=== PATIENT | male | born 1945 | race American Indian/Alaskan Native ===

== ENCOUNTER 2020-08-13 17:46 | Inpatient (IN) | payer MEDICARE, OTHER ==
[2020-08-13] MEDS ORDERED: Sodium Chloride 0.9% 1,000 ML IV ONE (18:57)
--- NOTE | 2020-08-13 19:09 | EDM.PDOC ---
ED HPI GENERAL MEDICAL PROBLEM - General Chief Complaint: General Stated Complaint: COVID POSITIVE-NOT EATING OR DRINKING Time Seen by Provider: 08/13/20 17:50 Source of Information: Reports: Patient, Family History Limitations: Reports: No Limitations - History of Present Illness INITIAL COMMENTS - FREE TEXT/NARRATIVE: HISTORY AND PHYSICAL: History of present illness: Patient is a 75-year-old male who presents to the ED today with his daughter for concern of confusion, not eating or drinking, and weakness. Patient was diagnosed with COVID 1 week ago and daughter states initially he was doing fine but did have some coughs and fevers. Daughter states that he was doing better until 1 to 2 days ago when suddenly he was unable to walk, stand, get himself dressed, eat, or drink anything. Daughter states that prior to the COVID infection, he was fully ambulatory and completed ADLs without any assistance. Daughter states that he also is confused and is not replying appropriately to questions. Patient states when asked what he is feeling he states "tired ". Patient does not answer much more than this. When asked patient where he is at he believes he is in [facility]. Patient is aware of himself and family member at bedside but does answer other questions slowly and confused. Review of systems: As per history of present illness and below otherwise all systems reviewed and negative. Past medical history: As per history of present illness and as reviewed below otherwise noncontributory. Surgical history: As per history of present illness and as reviewed below otherwise noncontributory. Social history: See social history for further information Family history: As per history of present illness and as reviewed below otherwise noncontribu tory. Physical exam: General: Patient is in no acute distress. Patient laying comfortably on exam table, tired appearing. He is slow to respond, with 1 word answers to questions. Orientated to person, time but not placed. Appears confused. HEENT: Atraumatic, normocephalic, pupils equal and reactive bilaterally, negative for conjunctival pallor or scleral icterus, mucous membranes moist, TMs normal bilaterally, throat clear, neck supple, nontender, trachea midline. No drooling or trismus noted. No meningeal signs. No hot potato voice noted. Lungs: Patient speaking without breathlessness but does only reply in short 1 word responses and confused, no wheezing or stridor, no accessory muscle use or respiratory distress. Auscultation deferred due to current COV-ID 19 outbreak. Heart: Auscultation deferred due to current COV-ID 19 outbreak. Abdomen: Soft, nondistended, nontender. Negative for masses or hepatosplenomegaly. Negative for costovertebral tenderness. Pelvis: Stable nontender. Genitourinary: Deferred. Rectal: Deferred. Skin: Intact, warm, dry. No lesions or rashes noted. Extremities: Atraumatic, negative for cords or calf pain. Neurovascular unremarkable. Neuro: Awake, tired, oriented to person but not place, confused about time. Answers questions in 1 word sentences and hesitant when responding to questions. Appears confused. Cranial nerves II through XII unremarkable. Cerebellum unremarkable. Motor and sensory unremarkable throughout. Notes: I called and spoke to Dr. Martines, hospitalist on-call, and discussed patient's case. Will admit to inpatient. Family agreeable to plan of care. Diagnostics: CBC, CMP, UA, EKG, CXR, Trop, Lactate, Blood cultures x 2, ethanol, urine drug, head ct, COVID Therapeutics: NS, Decadron 6mg, Rocephin 1g IV, Azithromycin 500mg IV, Carpenter Impression: Confusion COVID-19 infection Weakness/Fall risk Drug abuse Plan: Admit to inpatient to Dr. Bradshaw Definitive disposition and diagnosis as appropriate pending reevaluation and review of above. - Related Data Allergies Allergy/AdvReac Type Severity Reaction Status Date / Time codeine Allergy Vomiting Verified 11/18/19 18:26 Foam round adhesives Allergy Unknown Itching Uncoded 11/18/19 18:26 Home Meds: Home Meds RX: Carboxymethylcellulose Sodium [Refresh Plus 0.5%] 1 each OP ASDIRECTED 05/11/14 [History] RX: Citalopram [Citalopram HBr] 0 mg PO DAILY 05/11/14 [History] RX: Lisinopril 0 mg PO BRK 05/11/14 [History] RX: Omeprazole 20 mg PO DAILY 05/11/14 [History] RX: Simvastatin [Zocor] 0 mg PO BEDTIME 05/11/14 [History] RX: glyBURIDE [Micronase] 0 mg PO BIDM 05/11/14 [History] RX: metFORMIN HCl [Metformin ER Osmotic] 0 mg PO BID 08/26/15 [History] RX: Docusate Sodium [Colace] 100 mg PO BID #60 cap 09/20/16 [Rx] RX: Aspirin 325 mg PO DAILY 11/18/19 [History] methocarbamoL [Robaxin] 500 mg PO TID PRN #20 tab 11/18/19 [Rx] Past Medical History HEENT History: Reports: None Cardiovascular History: Reports: CAD, Hypertension, [place] Respiratory History: Reports: COPD Gastrointestinal History: Reports: Cholelithiasis, GERD Genitourinary History: Reports: None Musculoskeletal History: Reports: Back Pain, Chronic Neurological History: Reports: None Psychiatric History: Reports: Anxiety, Depression Endocrine/Metabolic History: Reports: Diabetes, Type II Hematologic History: Reports: None Immunologic History: Reports: None Oncologic (Cancer) History: Reports: None Dermatologic History: Reports: None - Infectious Disease History Infectious Disease History: Reports: None - Past Surgical History HEENT Surgical History: Reports: Cataract Surgery Cardiovascular Surgical History: Reports: Coronary Artery Bypass GI Surgical History: Reports: Cholecystectomy Musculoskeletal Surgical History: Reports: Hip Replacement Social & Family History - Family History Family Medical History: Noncontributory HEENT: Reports: Cataract, Sinusitis Cardiac: Reports: High Cholesterol, Hypertension, MT Respiratory: Reports: None GI: Reports: None : Reports: None OBGYN: Reports: Musculoskeletal: Reports: None Neurological: Reports: TIA Psychiatric: Reports: None Endocrine/Metabolic: Reports: Diabetes, Type I Hematologic: Reports: None Immunologic: Reports: None Dermatologic: Reports: Eczema Oncologic: Reports: None - Caffeine Use Caffeine Use: Reports: None ED ROS GENERAL - Review of Systems Review Of Systems: Comprehensive ROS is negative, except as noted in HPI. ED EXAM, GENERAL - Physical Exam Exam: See Below (see dictation) Course - Vital Signs Last Recorded V/S: Last Vital Signs Temp 96.6 F L 08/13/20 19:02 Pulse 70 08/13/20 21:03 Resp 13 08/13/20 21:03 BP 120/66 08/13/20 21:03 Pulse Ox 97 08/13/20 21:03 - Orders/Labs/Meds Orders: Active Orders 24 hr Category Date Time Status Cardiac Monitoring [RC] . DIRECTED Care 08/13/20 18:57 Active EKG Documentation Completion [RC] STAT Care 08/13/20 18:57 Active Carpenter Catheter Insertion [Insert Urinary Catheter] [OM. Care 08/13/20 20:30 Ordered PC] Q24H Urinary Catheter Assessment [RC] ASDIRECTED Care 08/13/20 20:28 Active CULTURE BLOOD [BC] Stat Lab 08/13/20 19:08 Received CULTURE BLOOD [BC] Stat Lab 08/13/20 19:52 Received Azithromycin [Zithromax] 500 mg Med 08/13/20 20:45 Active Sodium Chloride 0.9% [Normal Saline (AdvBag)] 250 ml IV ONETIME Blood Culture x2 Reflex Set [OM.PC] Stat Oth 08/13/20 19:03 Ordered Medication Orders Acetaminophen (Tylenol) 650 mg PO Q4H PRN PRN Reason: Pain (Mild 1-3)/fever Albuterol/Ipratropium (Combivent Respimat) 0 gm INH Q4H PRN PRN Reason: Dyspnea Dexamethasone (Dexamethasone) 6 mg PO DAILY [facility] Enoxaparin Sodium (Lovenox) 40 mg SUBCUT Q24H EUGENE Last Admin: 08/13/20 21:23 Dose: 40 mg Documented by: CAR Azithromycin 500 mg/ Sodium (Chloride) 250 mls @ 250 mls/hr IV ONETIME EUGENE Lactated Ringer's (Ringers, Lactated) 1,000 mls @ 100 mls/hr IV ASDIRECTED [facility] Azithromycin 500 mg/ Sodium (Chloride) 250 mls @ 250 mls/hr IV DAILY [facility] Insulin Aspart (Novolog) 0 unit SUBCUT TIDAC [facility]; Protocol Labs: Laboratory Tests 08/13/20 08/13/20 08/13/20 Range/Units 19:08 19:08 19:08 WBC 9.04 (4.0-11.0) K/uL RBC 4.42 L (4.50-5.90) M/uL Hgb 11.8 L (13.0-17.0) g/dL Hct 35.4 L (38.0-50.0) % MCV 80.1 (80.0-98.0) fL MCH 26.7 L (27.0-32.0) pg MCHC 33.3 (31.0-37.0) g/dL RDW Std Deviation 44.6 (28.0-62.0) fl RDW Coeff of Turner 15 (11.0-15.0) % Plt Count 244 (150-400) K/uL MPV 8.70 (7.40-12.00) fL Neut % (Auto) 82.9 H (48.0-80.0) % Lymph % (Auto) 8.1 L (16.0-40.0) % [place] % (Auto) 8.2 (0.0-15.0) % Eos % (Auto) 0.8 (0.0-7.0) % Baso % (Auto) 0.0 (0.0-1.5) % Neut # (Auto) 7.5 H (1.4-5.7) K/uL Lymph # (Auto) 0.7 (0.6-2.4) K/uL [place] # (Auto) 0.7 (0.0-0.8) K/uL Eos # (Auto) 0.1 (0.0-0.7) K/uL Baso # (Auto) 0.0 (0.0-0.1) K/uL Nucleated RBC % 0.0 /100WBC Nucleated RBCs # 0 K/uL Lactate 1.1 (0.20-2.00) mmol/L Sodium 132 L (136-148) mmol/L Potassium 4.5 (3.5-5.1) mmol/L Chloride 98 (98-107) mmol/L Carbon Dioxide 21.2 (21.0-32.0) mmol/L BUN 37 H (7.0-18.0) mg/dL Creatinine 2.2 H (0.8-1.3) mg/dL Est Cr Clr Drug Dosing TNP Estimated GFR (MDRD) 29.2 ml/min Glucose 121 H (74-106) mg/dL Calcium 8.6 (8.5-10.1) mg/dL Total Bilirubin 0.4 (0.2-1.0) mg/dL AST 22 (15-37) IU/L ALT 23 (14-63) IU/L Alkaline Phosphatase 98 (46-116) U/L Troponin I < 0.050 (0.000-0.056) ng/mL Total Protein 7.0 (6.4-8.2) g/dL Albumin 2.9 L (3.4-5.0) g/dL Globulin 4.1 H (2.6-4.0) g/dL Albumin/Globulin Ratio 0.7 L (0.9-1.6) Lipase 65 L (73-393) U/L Urine Color Urine Appearance Urine pH (5.0-8.0) Ur Specific [place] (1.001-1.035) Urine Protein (NEGATIVE) mg/dL Urine Glucose (UA) (NEGATIVE) mg/dL Urine Ketones (NEGATIVE) mg/dL Urine Occult Blood (NEGATIVE) Urine Nitrite (NEGATIVE) Urine Bilirubin (NEGATIVE) Urine Ictotest Urine Urobilinogen (<2.0) EU/dL Ur Leukocyte Esterase (NEGATIVE) Urine Opiates Screen (NEGATIVE) Ur Oxycodone Screen (NEGATIVE) Urine Methadone Screen (NEGATIVE) Ur Barbiturates Screen (NEGATIVE) Ur Phencyclidine Scrn (NEGATIVE) Ur Amphetamine Screen (NEGATIVE) U Methamphetamines Scrn (NEGATIVE) U Benzodiazepines Scrn (NEGATIVE) U Cocaine Metab Screen (NEGATIVE) U Marijuana (THC) Screen (NEGATIVE) Ethyl Alcohol < 3.0 mg/dL SARS-CoV-2 RNA (NIKOLE) (NEGATIVE) 08/13/20 08/13/20 08/13/20 Range/Units 20:27 20:30 20:30 WBC (4.0-11.0) K/uL RBC (4.50-5.90) M/uL Hgb (13.0-17.0) g/dL Hct (38.0-50.0) % MCV (80.0-98.0) fL MCH (27.0-32.0) pg MCHC (31.0-37.0) g/dL RDW Std Deviation (28.0-62.0) fl RDW Coeff of Turner (11.0-15.0) % Plt Count (150-400) K/uL MPV (7.40-12.00) fL Neut % (Auto) (48.0-80.0) % Lymph % (Auto) (16.0-40.0) % [place] % (Auto) (0.0-15.0) % Eos % (Auto) (0.0-7.0) % Baso % (Auto) (0.0-1.5) % Neut # (Auto) (1.4-5.7) K/uL Lymph # (Auto) (0.6-2.4) K/uL [place] # (Auto) (0.0-0.8) K/uL Eos # (Auto) (0.0-0.7) K/uL Baso # (Auto) (0.0-0.1) K/uL Nucleated RBC % /100WBC Nucleated RBCs # K/uL Lactate (0.20-2.00) mmol/L Sodium (136-148) mmol/L Potassium (3.5-5.1) mmol/L Chloride (98-107) mmol/L Carbon Dioxide (21.0-32.0) mmol/L BUN (7.0-18.0) mg/dL Creatinine (0.8-1.3) mg/dL Est Cr Clr Drug Dosing Estimated GFR (MDRD) ml/min Glucose (74-106) mg/dL Calcium (8.5-10.1) mg/dL Total Bilirubin (0.2-1.0) mg/dL AST (15-37) IU/L ALT (14-63) IU/L Alkaline Phosphatase (46-116) U/L Troponin I (0.000-0.056) ng/mL Total Protein (6.4-8.2) g/dL Albumin (3.4-5.0) g/dL Globulin (2.6-4.0) g/dL Albumin/Globulin Ratio (0.9-1.6) Lipase (73-393) U/L Urine Color YELLOW Urine Appearance SLT CLOUDY Urine pH 5.0 (5.0-8.0) Ur Specific [place] >= 1.030 (1.001-1.035) Urine Protein NEGATIVE (NEGATIVE) mg/dL Urine Glucose (UA) NEGATIVE (NEGATIVE) mg/dL Urine Ketones TRACE H (NEGATIVE) mg/dL Urine Occult Blood NEGATIVE (NEGATIVE) Urine Nitrite NEGATIVE (NEGATIVE) Urine Bilirubin MODERATE H (NEGATIVE) Urine Ictotest NEGATIVE Urine Urobilinogen 1.0 (<2.0) EU/dL Ur Leukocyte Esterase NEGATIVE (NEGATIVE) Urine Opiates Screen NEGATIVE (NEGATIVE) Ur Oxycodone Screen NEGATIVE (NEGATIVE) Urine Methadone Screen POSITIVE (NEGATIVE) Ur Barbiturates Screen NEGATIVE (NEGATIVE) Ur Phencyclidine Scrn POSITIVE (NEGATIVE) Ur Amphetamine Screen NEGATIVE (NEGATIVE) U Methamphetamines Scrn NEGATIVE (NEGATIVE) U Benzodiazepines Scrn NEGATIVE (NEGATIVE) U Cocaine Metab Screen NEGATIVE (NEGATIVE) U Marijuana (THC) Screen NEGATIVE (NEGATIVE) Ethyl Alcohol mg/dL SARS-CoV-2 RNA (NIKOLE) NEGATIVE (NEGATIVE) Meds: Medications Generic Name Dose Route Start Last Admin Trade Name Jannie PRN Reason Stop Dose Admin Acetaminophen 650 mg 08/13/20 21:04 Tylenol PO Q4H PRN Pain (Mild 1-3)/fever Albuterol/Ipratropium 0 gm 08/13/20 21:10 Combivent Respimat INH Q4H PRN Dyspnea Dexamethasone 6 mg 08/14/20 09:00 Dexamethasone PO DAILY EUGENE Enoxaparin Sodium 40 mg 08/13/20 21:15 08/13/20 21:23 Lovenox SUBCUT 40 mg Q24H EUGENE Administration Azithromycin 500 mg/ Sodium 250 mls @ 250 mls/hr 08/13/20 20:45 Chloride IV ONETIME EUGENE Lactated Ringer's 1,000 mls @ 100 mls/hr 08/13/20 21:15 Ringers, Lactated IV ASDIRECTED [facility] Azithromycin 500 mg/ Sodium 250 mls @ 250 mls/hr 08/14/20 09:00 Chloride IV DAILY [facility] Insulin Aspart 0 unit 08/14/20 07:30 Novolog SUBCUT TIDAC [facility] Protocol Discontinued Medications Generic Name Dose Route Start Last Admin Trade Name Jannie PRN Reason Stop Dose Admin Dexamethasone 6 mg 08/13/20 20:13 08/13/20 21:18 Dexamethasone IVPUSH 08/13/20 20:14 6 mg ONETIME ONE Administration Sodium Chloride 1,000 mls @ 999 mls/hr 08/13/20 18:57 08/13/20 21:17 Normal Saline IV 08/13/20 19:57 999 mls/hr BOLUS ONE Administration Ceftriaxone Sodium/Dextrose 1 50 mls @ 100 mls/hr 08/13/20 20:30 08/13/20 21:21 gm/ Premix IV 08/13/20 20:59 100 mls/hr ONETIME ONE Administration Departure - Departure Time of Disposition: 21:46 Disposition: Admitted As Inpatient 65 Clinical Impression: COVID-19, Confusion, Weakness, Risk for falls - Discharge Information Sepsis Event Note (ED) - Focused Exam Vital Signs: Vital Signs Temp Pulse Resp BP Pulse Ox 08/13/20 19:02 96.6 F L 75 19 95/54 L 96 - My Orders Last 24 Hours: My Active Orders 08/13/20 18:57 Cardiac Monitoring [RC] . DIRECTED EKG Documentation Completion [RC] STAT 08/13/20 19:03 Blood Culture x2 Reflex Set [OM.PC] Stat 08/13/20 19:08 CULTURE BLOOD [BC] Stat 08/13/20 19:52 CULTURE BLOOD [BC] Stat 08/13/20 20:28 Urinary Catheter Assessment [RC] ASDIRECTED 08/13/20 20:30 Carpenter Catheter Insertion [Insert Urinary Catheter] [OM.PC] Q24H 08/13/20 20:45 Azithromycin [Zithromax] 500 mg Sodium Chloride 0.9% [Normal Saline (AdvBag)] 250 ml IV ONETIME - Assessment/Plan Last 24 Hours: My Active Orders 08/13/20 18:57 Cardiac Monitoring [RC] . DIRECTED EKG Documentation Completion [RC] STAT 08/13/20 19:03 Blood Culture x2 Reflex Set [OM.PC] Stat 08/13/20 19:08 CULTURE BLOOD [BC] Stat 08/13/20 19:52 CULTURE BLOOD [BC] Stat 08/13/20 20:28 Urinary Catheter Assessment [RC] ASDIRECTED 08/13/20 20:30 Carpenter Catheter Insertion [Insert Urinary Catheter] [OM.PC] Q24H 08/13/20 20:45 Azithromycin [Zithromax] 500 mg Sodium Chloride 0.9% [Normal Saline (AdvBag)] 250 ml IV ONETIME
[2020-08-13 19:41] LABS: BLOOD UREA NITROGEN,BUN 37 mg/dL (7.0-18.0); CARBON DIOXIDE,CO2 21.2 mmol/L (21.0-32.0); CHLORIDE,CL 98 mmol/L (98-107); GLUCOSE RANDOM 121 mg/dL (74-106); LIPASE 65 U/L (73-393); POTASSIUM,K 4.5 mmol/L (3.5-5.1); SODIUM,NA 132 mmol/L (136-148)
--- NOTE | 2020-08-13 19:43 | CT ---
Head CT Technique: Multiple axial sections through the brain were obtained. Intravenous contrast was not utilized. Comparison: Prior head CT study of 05/29/19 is available. Findings: Ventricles along with basal cisterns and sulci over the convexities are moderately prominent. Diminished density is noted within the periventricular and subcortical white matter which is felt compatible with small vessel ischemic demyelination change. Minimal areas of diminished density are noted within the basal ganglia compatible with previous lacunar infarcts. No other abnormal parenchymal densities are seen. No evidence of intracranial hemorrhage. No midline shift or mass-effect is appreciated. Bone window settings were reviewed. Mild mucosal thickening is seen within the sphenoid sinus. Findings are slightly more prominent currently than seen on prior exam. Other visualized paranasal sinuses are clear. No acute calvarial finding is seen. Minimal atherosclerotic calcification within the carotid siphon and vertebral vessels are seen. Impression: 1. Senescent change as described above. 2. Mild mucosal thickening within the sphenoid sinus which is slightly more prominent than on prior study but still having the appearance of minimal chronic sinusitis. 3. Nothing acute is appreciated. Diagnostic code #2 This report was dictated in MDT
--- NOTE | 2020-08-13 20:08 | CR ---
Chest: Portable view of the chest was obtained. Comparison: Previous chest x-ray of 11/18/19. Patchy areas of increasing density are seen within the right upper and right lower lung and left lower lung most likely representing viral pneumonia. 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 Heart does not appear enlarged. Upper mediastinum is normal. Bony structures are grossly intact. Impression: 1. Patchy areas of increased density on both sides of the chest as described above. These findings are most likely viral given their multiple locations. 2. Other findings which are believed to be incidental. Diagnostic code #3 This report was dictated in MDT
[2020-08-13] MEDS ORDERED: Dexamethasone 10 MG/ML SDV IVPUSH ONE (20:13)
[2020-08-13] MEDS ORDERED: cefTRIAXone 1 GM in Premix Bag 1 BAG IV ONE (20:30)
[2020-08-13] MEDS ORDERED: Acetaminophen 325 MG Tab PO PRN (21:04)
[2020-08-13] MEDS ORDERED: Albuterol/Ipratropium 4 GM Inhalation Spray INH PRN (21:10)
[2020-08-13] MEDS ORDERED: Lactated Ringers 1,000 ML IV SCH (21:15)
[2020-08-13] MEDS: Enoxaparin 40 MG/0.4 ML Syringe SUBCUT SCH (21:23)
[2020-08-13] MEDS: Azithromycin 500 MG in Sodium Chloride 0.9% 250 ML IV SCH (22:52)
--- NOTE | 2020-08-13 22:58 | PCM.HP.2 ---
H&P History of Present Illness - General Date of Service: 08/13/20 Admit Problem/Dx: Admission Diagnosis/Problem Admission Diagnosis/Problem Pneumonia - History of Present Illness Initial Comments - Free Text/Narative: Patient is a 75-year-old male with PMH of CAD, Hypertension, MO, COPD, Cholelithiasis, GERD, Back Pain, Chronic, Anxiety, Depression who presents to the ED today with his daughter for concern of confusion, not eating or drinking, and inability t perform ADLS for last few days. Patient was diagnosed with COVID 1 week ago and daughter states initially he was doing well, has mild symptoms such as coughs and fevers. 2 days back patient was suddenly very weak, he was unable to walk, stand, get himself dressed, eat, or drink anything. Daughter states that prior to the COVID infection, he was fully ambulatory and completed ADLs without any assistance. Daughter states that he also is confused and is not replying appropriately to questions. CT scan of head didn't show any acute finding, cxr showed multifocal pneumonia possibly viral in nature, his labs reveled SEAN, In the ER patient received IV fluids, and IV antibiotics, Carpenter was placed in ER, His BP was initially soft which later improved after IV fluids. Patient is being admitted for further care. - Related Data Allergies/Adverse Reactions: Allergies Allergy/AdvReac Type Severity Reaction Status Date / Time codeine Allergy Vomiting Verified 11/18/19 18:26 Foam round adhesives Allergy Unknown Itching Uncoded 11/18/19 18:26 Home Medications: Home Meds Carboxymethylcellulose Sodium [Refresh Plus 0.5%] 1 each OP ASDIRECTED 05/11/14 [History] Aspirin 325 mg PO DAILY 11/18/19 [History] Latanoprost/Pf [Latanoprost 0.005% Eye Drop] 1 drop EYEBOTH BEDTIME 08/14/20 [History] Lidocaine 5% [Lidoderm 5%] 1 patch TD Q12H 08/14/20 [History] Naproxen 250 mg PO BID PRN 08/14/20 [History] PARoxetine [Paxil] 20 mg PO DAILY 08/14/20 [History] QUEtiapine [SEROquel] 100 mg PO BEDTIME 08/14/20 [History] atorvaSTATin [Lipitor] 40 mg PO DAILY 08/14/20 [History] buPROPion HCL [Bupropion HCl Sr] 100 mg PO BID 08/14/20 [History] dilTIAZem HCL [Diltiazem 24Hr ER (Cd)] 240 mg PO DAILY 08/14/20 [History] glipiZIDE [Glucotrol] 2.5 mg PO DAILY 08/14/20 [History] hydrOXYzine pamoate [Hydroxyzine Pamoate] 25 mg PO QID PRN 08/14/20 [History] lisinopriL [Lisinopril] 40 mg PO DAILY 08/14/20 [History] metFORMIN HCl [Glucophage] 1,000 mg PO BIDMEALS 08/14/20 [History] Past Medical History - Past Health History Medical/Surgical History: Denies Medical/Surgical History HEENT History: Reports: None Cardiovascular History: Reports: CAD, Hypertension, MO Respiratory History: Reports: COPD Gastrointestinal History: Reports: Cholelithiasis, GERD Genitourinary History: Reports: None Musculoskeletal History: Reports: Back Pain, Chronic Neurological History: Reports: None Psychiatric History: Reports: Anxiety, Depression Endocrine/Metabolic History: Reports: Diabetes, Type II Hematologic History: Reports: None Immunologic History: Reports: None Oncologic (Cancer) History: Reports: None Dermatologic History: Reports: None - Infectious Disease History Infectious Disease History: Reports: None - Past Surgical History HEENT Surgical History: Reports: Cataract Surgery Cardiovascular Surgical History: Reports: Coronary Artery Bypass GI Surgical History: Reports: Cholecystectomy Musculoskeletal Surgical History: Reports: Hip Replacement Social & Family History - Family History Family Medical History: Noncontributory HEENT: Reports: Cataract, Sinusitis Cardiac: Reports: High Cholesterol, Hypertension, MO Respiratory: Reports: None GI: Reports: None : Reports: None OBGYN: Reports: Musculoskeletal: Reports: None Neurological: Reports: TIA Psychiatric: Reports: None Endocrine/Metabolic: Reports: Diabetes, Type I Hematologic: Reports: None Immunologic: Reports: None Dermatologic: Reports: Eczema Oncologic: Reports: None - Tobacco Use Smoking Status *Q: Current Every Day Smoker Years of Tobacco use: 20 Packs/Tins Daily: 0.5 - Caffeine Use Caffeine Use: Reports: None - Recreational Drug Use Recreational Drug Use: No H&P Review of Systems - Review of Systems: Review Of Systems: See Below General: Reports: Fever, Malaise, Weakness, Fatigue, Decreased Appetite Pulmonary: Reports: Cough. Denies: Shortness of Breath, Wheezing, Pleuritic Chest Pain Gastrointestinal: Reports: Anorexia. Denies: Abdominal Pain, Black Stool, Bloody Stool, Constipation Genitourinary: Denies: Dysuria, Frequency, Burning, Urgency Musculoskeletal: Denies: Neck Pain, Shoulder Pain, Back Pain Skin: Denies: Cyanosis, Jaundice, Mottled, Pallor Psychiatric: Denies: Confusion, Depression, Mood Lability Neurological: Denies: Confusion, Dizziness, Headache Exam - Exam Exam: See Below - Vital Signs Vital Signs: Last Vital Signs Temp 36.1 C 08/13/20 22:57 Pulse 75 08/13/20 22:57 Resp 17 08/13/20 22:57 BP 166/66 H 08/13/20 22:57 Pulse Ox 95 08/13/20 22:57 Weight: 79.832 kg - Exam Quality Assessment: No: Supplemental Oxygen General: Oriented, Mild Distress, Lethargic Neck: No: Supple Lungs: Clear to Auscultation, Normal Respiratory Effort Cardiovascular: Regular Rate, Regular Rhythm, Normal S1, Normal S2 GI/Abdominal Exam: Normal Bowel Sounds, Soft, Non-Tender Peripheral Pulses: 3+: Radial (L), Radial (R) Skin: Dry Neurological: Cranial Nerves Intact, Strength Equal Bilateral Neuro Extensive - Mental Status: Alert, Slow Response to Commands, Withdraws to Pain. No: Disorientation to Place, Disorientation to Time - Patient Data Lab Results Last 24 hrs: Laboratory Results - last 24 hr 08/13/20 08/13/20 08/13/20 Range/Units 19:08 19:08 19:08 WBC 9.04 (4.0-11.0) K/uL RBC 4.42 L (4.50-5.90) M/uL Hgb 11.8 L (13.0-17.0) g/dL Hct 35.4 L (38.0-50.0) % MCV 80.1 (80.0-98.0) fL MCH 26.7 L (27.0-32.0) pg MCHC 33.3 (31.0-37.0) g/dL RDW Std Deviation 44.6 (28.0-62.0) fl RDW Coeff of Turner 15 (11.0-15.0) % Plt Count 244 (150-400) K/uL MPV 8.70 (7.40-12.00) fL Neut % (Auto) 82.9 H (48.0-80.0) % Lymph % (Auto) 8.1 L (16.0-40.0) % Nobles % (Auto) 8.2 (0.0-15.0) % Eos % (Auto) 0.8 (0.0-7.0) % Baso % (Auto) 0.0 (0.0-1.5) % Neut # (Auto) 7.5 H (1.4-5.7) K/uL Lymph # (Auto) 0.7 (0.6-2.4) K/uL Nobles # (Auto) 0.7 (0.0-0.8) K/uL Eos # (Auto) 0.1 (0.0-0.7) K/uL Baso # (Auto) 0.0 (0.0-0.1) K/uL Nucleated RBC % 0.0 /100WBC Nucleated RBCs # 0 K/uL Lactate 1.1 (0.20-2.00) mmol/L Sodium 132 L (136-148) mmol/L Potassium 4.5 (3.5-5.1) mmol/L Chloride 98 (98-107) mmol/L Carbon Dioxide 21.2 (21.0-32.0) mmol/L BUN 37 H (7.0-18.0) mg/dL Creatinine 2.2 H (0.8-1.3) mg/dL Est Cr Clr Drug Dosing TNP Estimated GFR (MDRD) 29.2 ml/min Glucose 121 H (74-106) mg/dL Calcium 8.6 (8.5-10.1) mg/dL Total Bilirubin 0.4 (0.2-1.0) mg/dL AST 22 (15-37) IU/L ALT 23 (14-63) IU/L Alkaline Phosphatase 98 (46-116) U/L Troponin I < 0.050 (0.000-0.056) ng/mL Total Protein 7.0 (6.4-8.2) g/dL Albumin 2.9 L (3.4-5.0) g/dL Globulin 4.1 H (2.6-4.0) g/dL Albumin/Globulin Ratio 0.7 L (0.9-1.6) Lipase 65 L (73-393) U/L Urine Color Urine Appearance Urine pH (5.0-8.0) Ur Specific Clayton (1.001-1.035) Urine Protein (NEGATIVE) mg/dL Urine Glucose (UA) (NEGATIVE) mg/dL Urine Ketones (NEGATIVE) mg/dL Urine Occult Blood (NEGATIVE) Urine Nitrite (NEGATIVE) Urine Bilirubin (NEGATIVE) Urine Ictotest Urine Urobilinogen (<2.0) EU/dL Ur Leukocyte Esterase (NEGATIVE) Urine Opiates Screen (NEGATIVE) Ur Oxycodone Screen (NEGATIVE) Urine Methadone Screen (NEGATIVE) Ur Barbiturates Screen (NEGATIVE) Ur Phencyclidine Scrn (NEGATIVE) Ur Amphetamine Screen (NEGATIVE) U Methamphetamines Scrn (NEGATIVE) U Benzodiazepines Scrn (NEGATIVE) U Cocaine Metab Screen (NEGATIVE) U Marijuana (THC) Screen (NEGATIVE) Ethyl Alcohol < 3.0 mg/dL SARS-CoV-2 RNA (NIKOLE) (NEGATIVE) 08/13/20 08/13/20 08/13/20 Range/Units 20:27 20:30 20:30 WBC (4.0-11.0) K/uL RBC (4.50-5.90) M/uL Hgb (13.0-17.0) g/dL Hct (38.0-50.0) % MCV (80.0-98.0) fL MCH (27.0-32.0) pg MCHC (31.0-37.0) g/dL RDW Std Deviation (28.0-62.0) fl RDW Coeff of Turner (11.0-15.0) % Plt Count (150-400) K/uL MPV (7.40-12.00) fL Neut % (Auto) (48.0-80.0) % Lymph % (Auto) (16.0-40.0) % Nobles % (Auto) (0.0-15.0) % Eos % (Auto) (0.0-7.0) % Baso % (Auto) (0.0-1.5) % Neut # (Auto) (1.4-5.7) K/uL Lymph # (Auto) (0.6-2.4) K/uL Nobles # (Auto) (0.0-0.8) K/uL Eos # (Auto) (0.0-0.7) K/uL Baso # (Auto) (0.0-0.1) K/uL Nucleated RBC % /100WBC Nucleated RBCs # K/uL Lactate (0.20-2.00) mmol/L Sodium (136-148) mmol/L Potassium (3.5-5.1) mmol/L Chloride (98-107) mmol/L Carbon Dioxide (21.0-32.0) mmol/L BUN (7.0-18.0) mg/dL Creatinine (0.8-1.3) mg/dL Est Cr Clr Drug Dosing Estimated GFR (MDRD) ml/min Glucose (74-106) mg/dL Calcium (8.5-10.1) mg/dL Total Bilirubin (0.2-1.0) mg/dL AST (15-37) IU/L ALT (14-63) IU/L Alkaline Phosphatase (46-116) U/L Troponin I (0.000-0.056) ng/mL Total Protein (6.4-8.2) g/dL Albumin (3.4-5.0) g/dL Globulin (2.6-4.0) g/dL Albumin/Globulin Ratio (0.9-1.6) Lipase (73-393) U/L Urine Color YELLOW Urine Appearance SLT CLOUDY Urine pH 5.0 (5.0-8.0) Ur Specific Clayton >= 1.030 (1.001-1.035) Urine Protein NEGATIVE (NEGATIVE) mg/dL Urine Glucose (UA) NEGATIVE (NEGATIVE) mg/dL Urine Ketones TRACE H (NEGATIVE) mg/dL Urine Occult Blood NEGATIVE (NEGATIVE) Urine Nitrite NEGATIVE (NEGATIVE) Urine Bilirubin MODERATE H (NEGATIVE) Urine Ictotest NEGATIVE Urine Urobilinogen 1.0 (<2.0) EU/dL Ur Leukocyte Esterase NEGATIVE (NEGATIVE) Urine Opiates Screen NEGATIVE (NEGATIVE) Ur Oxycodone Screen NEGATIVE (NEGATIVE) Urine Methadone Screen POSITIVE (NEGATIVE) Ur Barbiturates Screen NEGATIVE (NEGATIVE) Ur Phencyclidine Scrn POSITIVE (NEGATIVE) Ur Amphetamine Screen NEGATIVE (NEGATIVE) U Methamphetamines Scrn NEGATIVE (NEGATIVE) U Benzodiazepines Scrn NEGATIVE (NEGATIVE) U Cocaine Metab Screen NEGATIVE (NEGATIVE) U Marijuana (THC) Screen NEGATIVE (NEGATIVE) Ethyl Alcohol mg/dL SARS-CoV-2 RNA (NIKOLE) NEGATIVE (NEGATIVE) Result Diagrams: 08/14/20 05:25 08/14/20 05:25 Sepsis Event Note - Evaluation Sepsis Screening Result: No Definite Risk - Focused Exam Vital Signs: Vital Signs Temp Pulse Resp BP Pulse Ox 08/13/20 22:57 36.1 C 75 17 166/66 H 95 08/13/20 22:15 79 18 117/78 95 08/13/20 21:03 70 13 120/66 97 08/13/20 21:01 71 14 118/65 98 08/13/20 19:02 35.9 C L 75 19 95/54 L 96 - Problem List (1) SEAN (acute kidney injury) SNOMED Code(s): 61623865, 77753384 ICD Code: N17.9 - ACUTE KIDNEY FAILURE, UNSPECIFIED Status: Acute Current Visit: Yes (2) COPD (chronic obstructive pulmonary disease) SNOMED Code(s): 69733072 ICD Code: J44.9 - CHRONIC OBSTRUCTIVE PULMONARY DISEASE, UNSPECIFIED Status: Acute Current Visit: Yes (3) Weakness SNOMED Code(s): 12775246 ICD Code: R53.1 - WEAKNESS Status: Acute Current Visit: Yes (4) Alcohol abuse SNOMED Code(s): 67863231 ICD Code: F10.10 - ALCOHOL ABUSE, UNCOMPLICATED Status: Chronic Priority: Medium Current Visit: No (5) Diabetes type 2, controlled SNOMED Code(s): 31216621, 014783437 ICD Code: E11.9 - TYPE 2 DIABETES MELLITUS WITHOUT COMPLICATIONS Status: Chronic Priority: Medium Current Visit: No Qualifiers: 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 use Diabetes mellitus complication status: without complication Qualified Code(s): E11.9 - Type 2 diabetes mellitus without complications (6) S/P CABG x 3 SNOMED Code(s): 176769327, 217867490, 359539659 ICD Code: Z95.1 - PRESENCE OF AORTOCORONARY BYPASS GRAFT Status: Chronic Priority: Medium Current Visit: No (7) COVID-19 SNOMED Code(s): 263465043 ICD Code: U07.1 - COVID-19 Status: Acute Current Visit: Yes Problem List Initiated/Reviewed/Updated: Yes Orders Last 24hrs: Active Orders 24 hr Category Date Time Status Admission Status [Patient Status] [ADT] Stat ADT 08/13/20 20:40 Active Antiembolic Devices [RC] PER UNIT ROUTINE Care 08/13/20 21:06 Active Blood Glucose Check, Bedside [RC] WITHMEALSANDBED Care 08/13/20 21:04 Active Cardiac Monitoring [RC] . DIRECTED Care 08/13/20 18:57 Active EKG Documentation Completion [RC] STAT Care 08/13/20 18:57 Active Carpenter Catheter Insertion [Insert Urinary Catheter] [OM. Care 08/13/20 20:30 Ordered PC] Q24H Oxygen Therapy [RC] PRN Care 08/13/20 21:04 Active Pulse Oximetry [RC] PRN Care 08/13/20 21:05 Active RT Post Treatment Assessment [RC] Click to Edit Care 08/13/20 21:10 Active RT Pre-Treatment Assessment [RC] Click to Edit Care 08/13/20 21:10 Active Urinary Catheter Assessment [RC] ASDIRECTED Care 08/13/20 20:28 Active VTE/DVT Education [RC] PER UNIT ROUTINE Care 08/13/20 21:04 Active Vital Signs [RC] Q4H Care 08/13/20 21:04 Active [employer] Diet [DIET] Diet 08/13/20 Dinner Active BMP [BASIC METABOLIC PANEL,BMP] [CHEM] AM Lab 08/14/20 05:11 Ordered CBC WITH AUTO DIFF [HEME] AM Lab 08/14/20 05:11 Ordered CULTURE BLOOD [BC] Stat Lab 08/13/20 19:08 Received CULTURE BLOOD [BC] Stat Lab 08/13/20 19:52 Received MAGNESIUM [CHEM] AM Lab 08/14/20 05:11 Ordered PHOSPHORUS [CHEM] AM Lab 08/14/20 05:11 Ordered Acetaminophen [TylenoL] Med 08/13/20 21:04 Active 650 mg PO Q4H PRN Albuterol/Ipratropium [Combivent Respimat] Med 08/13/20 21:10 Active See Dose Instructions INH Q4H PRN Azithromycin [Zithromax] 500 mg Med 08/14/20 09:00 Active Sodium Chloride 0.9% [Normal Saline (AdvBag)] 250 ml IV DAILY Azithromycin [Zithromax] 500 mg Med 08/13/20 20:45 Active Sodium Chloride 0.9% [Normal Saline (AdvBag)] 250 ml IV ONETIME Enoxaparin [Lovenox] Med 08/13/20 21:15 Active 40 mg SUBCUT Q24H Insulin Aspart [NovoLOG] Med 08/14/20 07:30 Active See Protocol SUBCUT TIDAC Lactated Ringers [Ringers, Lactated] 1,000 ml Med 08/13/20 21:15 Active IV ASDIRECTED dexAMETHasone Med 08/14/20 09:00 Active 6 mg PO DAILY Blood Culture x2 Reflex Set [OM.PC] Stat Ot 08/13/20 19:03 Ordered Sequential Compression Device [OM.PC] Per Unit Routine Ot 08/13/20 21:05 Ordered Medication Orders Acetaminophen (Tylenol) 650 mg PO Q4H PRN PRN Reason: Pain (Mild 1-3)/fever Albuterol/Ipratropium (Combivent Respimat) 0 gm INH Q4H PRN PRN Reason: Dyspnea Dexamethasone (Dexamethasone) 6 mg PO DAILY [facility] Enoxaparin Sodium (Lovenox) 40 mg SUBCUT Q24H [facility] Last Admin: 08/13/20 21:23 Dose: 40 mg Documented by: CAR Azithromycin 500 mg/ Sodium (Chloride) 250 mls @ 250 mls/hr IV ONETIME [facility] Last Admin: 08/13/20 22:52 Dose: 250 mls/hr Documented by: KARL Lactated Ringer's (Ringers, Lactated) 1,000 mls @ 100 mls/hr IV ASDIRECTED EUGENE Last Admin: 08/13/20 22:48 Dose: 100 mls/hr Documented by: KARL Azithromycin 500 mg/ Sodium (Chloride) 250 mls @ 250 mls/hr IV DAILY [facility] Insulin Aspart (Novolog) 0 unit SUBCUT TIDAC EUGENE; Protocol Assessment/Plan Comment:: 75 y/o M admitted for Generalized weakness, ambulatory dysfunction and AMS Prior h/o COVID last week, tested negative today on Rom air, oxygen as needed PRN to keep pulse oxy >88% cont dexamethasone cont IV azithromycin Lovenox for DVT ppx Combivent as needed SEAN likely pre-renal IV fluids for resuscitation Check CBC, BMP in AM SSI for DM
[2020-08-14] MEDS: Insulin Aspart 100 Units/ML 3 ML Pen SUBCUT SCH ×4 (00:07→18:20)
[2020-08-14] MEDS ORDERED: Insulin Aspart 100 Units/ML 3 ML Pen SUBCUT SCH (07:30)
[2020-08-14] MEDS: Dexamethasone 4 MG Tab PO SCH (09:36)
[2020-08-14] MEDS: Azithromycin 500 MG in Sodium Chloride 0.9% 250 ML IV SCH ×2 (09:36→09:53)
[2020-08-14] MEDS ORDERED: Magnesium Sulfate/Water 2 GM/50 ML Premix Bag IV ONE (10:15)
[2020-08-14] MEDS ORDERED: Magnesium Sulfate/Water 2 GM/50 ML BAG IV ONE (10:45)
--- NOTE | 2020-08-14 11:35 | PCM.PN ---
- General Info Date of Service: 08/14/20 Admission Dx/Problem (Free Text): Admission Diagnosis/Problem Admission Diagnosis/Problem Pneumonia Subjective Update: patient much more awake and alert today, states he feels much better today, no chest pain, shortness of breath - Review of Systems General: Reports: Weakness, Fatigue, Malaise. Denies: Fever Pulmonary: Denies: Shortness of Breath, Pleuritic Chest Pain Cardiovascular: Denies: Chest Pain, Palpitations, Dyspnea on Exertion Gastrointestinal: Denies: Abdominal Pain, Constipation, Decreased Appetite Genitourinary: Denies: Dysuria, Frequency, Burning - Patient Data Vitals - Most Recent: Last Vital Signs Temp 36.8 C 08/14/20 08:32 Pulse 82 08/14/20 08:32 Resp 16 08/14/20 08:32 BP 141/75 H 08/14/20 08:32 Pulse Ox 92 L 08/14/20 08:32 Weight - Most Recent: 79.832 kg I&O - Last 24 Hours: Intake & Output 08/13/20 08/14/20 08/14/20 22:59 06:59 14:59 Intake Total 828 Output Total 500 Balance 328 Lab Results Last 24 Hours: Laboratory Results - last 24 hr 08/13/20 08/13/20 08/13/20 Range/Units 19:08 19:08 19:08 WBC 9.04 (4.0-11.0) K/uL RBC 4.42 L (4.50-5.90) M/uL Hgb 11.8 L (13.0-17.0) g/dL Hct 35.4 L (38.0-50.0) % MCV 80.1 (80.0-98.0) fL MCH 26.7 L (27.0-32.0) pg MCHC 33.3 (31.0-37.0) g/dL RDW Std Deviation 44.6 (28.0-62.0) fl RDW Coeff of Turner 15 (11.0-15.0) % Plt Count 244 (150-400) K/uL MPV 8.70 (7.40-12.00) fL Neut % (Auto) 82.9 H (48.0-80.0) % Lymph % (Auto) 8.1 L (16.0-40.0) % Moca % (Auto) 8.2 (0.0-15.0) % Eos % (Auto) 0.8 (0.0-7.0) % Baso % (Auto) 0.0 (0.0-1.5) % Neut # (Auto) 7.5 H (1.4-5.7) K/uL Lymph # (Auto) 0.7 (0.6-2.4) K/uL Moca # (Auto) 0.7 (0.0-0.8) K/uL Eos # (Auto) 0.1 (0.0-0.7) K/uL Baso # (Auto) 0.0 (0.0-0.1) K/uL Nucleated RBC % 0.0 /100WBC Nucleated RBCs # 0 K/uL Lactate 1.1 (0.20-2.00) mmol/L Sodium 132 L (136-148) mmol/L Potassium 4.5 (3.5-5.1) mmol/L Chloride 98 (98-107) mmol/L Carbon Dioxide 21.2 (21.0-32.0) mmol/L BUN 37 H (7.0-18.0) mg/dL Creatinine 2.2 H (0.8-1.3) mg/dL Est Cr Clr Drug Dosing TNP Estimated GFR (MDRD) 29.2 ml/min Glucose 121 H (74-106) mg/dL POC Glucose (60-110) mg/dL Calcium 8.6 (8.5-10.1) mg/dL Phosphorus (2.6-4.7) mg/dL Magnesium (1.8-2.4) mg/dL Total Bilirubin 0.4 (0.2-1.0) mg/dL AST 22 (15-37) IU/L ALT 23 (14-63) IU/L Alkaline Phosphatase 98 (46-116) U/L Troponin I < 0.050 (0.000-0.056) ng/mL Total Protein 7.0 (6.4-8.2) g/dL Albumin 2.9 L (3.4-5.0) g/dL Globulin 4.1 H (2.6-4.0) g/dL Albumin/Globulin Ratio 0.7 L (0.9-1.6) Lipase 65 L (73-393) U/L Urine Color Urine Appearance Urine pH (5.0-8.0) Ur Specific [place] (1.001-1.035) Urine Protein (NEGATIVE) mg/dL Urine Glucose (UA) (NEGATIVE) mg/dL Urine Ketones (NEGATIVE) mg/dL Urine Occult Blood (NEGATIVE) Urine Nitrite (NEGATIVE) Urine Bilirubin (NEGATIVE) Urine Ictotest Urine Urobilinogen (<2.0) EU/dL Ur Leukocyte Esterase (NEGATIVE) Urine Opiates Screen (NEGATIVE) Ur Oxycodone Screen (NEGATIVE) Urine Methadone Screen (NEGATIVE) Ur Barbiturates Screen (NEGATIVE) Ur Phencyclidine Scrn (NEGATIVE) Ur Amphetamine Screen (NEGATIVE) U Methamphetamines Scrn (NEGATIVE) U Benzodiazepines Scrn (NEGATIVE) U Cocaine Metab Screen (NEGATIVE) U Marijuana (THC) Screen (NEGATIVE) Ethyl Alcohol < 3.0 mg/dL SARS-CoV-2 RNA (NIKOLE) (NEGATIVE) 08/13/20 08/13/20 08/13/20 Range/Units 20:27 20:30 20:30 WBC (4.0-11.0) K/uL RBC (4.50-5.90) M/uL Hgb (13.0-17.0) g/dL Hct (38.0-50.0) % MCV (80.0-98.0) fL MCH (27.0-32.0) pg MCHC (31.0-37.0) g/dL RDW Std Deviation (28.0-62.0) fl RDW Coeff of Turner (11.0-15.0) % Plt Count (150-400) K/uL MPV (7.40-12.00) fL Neut % (Auto) (48.0-80.0) % Lymph % (Auto) (16.0-40.0) % Moca % (Auto) (0.0-15.0) % Eos % (Auto) (0.0-7.0) % Baso % (Auto) (0.0-1.5) % Neut # (Auto) (1.4-5.7) K/uL Lymph # (Auto) (0.6-2.4) K/uL Moca # (Auto) (0.0-0.8) K/uL Eos # (Auto) (0.0-0.7) K/uL Baso # (Auto) (0.0-0.1) K/uL Nucleated RBC % /100WBC Nucleated RBCs # K/uL Lactate (0.20-2.00) mmol/L Sodium (136-148) mmol/L Potassium (3.5-5.1) mmol/L Chloride (98-107) mmol/L Carbon Dioxide (21.0-32.0) mmol/L BUN (7.0-18.0) mg/dL Creatinine (0.8-1.3) mg/dL Est Cr Clr Drug Dosing Estimated GFR (MDRD) ml/min Glucose (74-106) mg/dL POC Glucose (60-110) mg/dL Calcium (8.5-10.1) mg/dL Phosphorus (2.6-4.7) mg/dL Magnesium (1.8-2.4) mg/dL Total Bilirubin (0.2-1.0) mg/dL AST (15-37) IU/L ALT (14-63) IU/L Alkaline Phosphatase (46-116) U/L Troponin I (0.000-0.056) ng/mL Total Protein (6.4-8.2) g/dL Albumin (3.4-5.0) g/dL Globulin (2.6-4.0) g/dL Albumin/Globulin Ratio (0.9-1.6) Lipase (73-393) U/L Urine Color YELLOW Urine Appearance SLT CLOUDY Urine pH 5.0 (5.0-8.0) Ur Specific [place] >= 1.030 (1.001-1.035) Urine Protein NEGATIVE (NEGATIVE) mg/dL Urine Glucose (UA) NEGATIVE (NEGATIVE) mg/dL Urine Ketones TRACE H (NEGATIVE) mg/dL Urine Occult Blood NEGATIVE (NEGATIVE) Urine Nitrite NEGATIVE (NEGATIVE) Urine Bilirubin MODERATE H (NEGATIVE) Urine Ictotest NEGATIVE Urine Urobilinogen 1.0 (<2.0) EU/dL Ur Leukocyte Esterase NEGATIVE (NEGATIVE) Urine Opiates Screen NEGATIVE (NEGATIVE) Ur Oxycodone Screen NEGATIVE (NEGATIVE) Urine Methadone Screen POSITIVE (NEGATIVE) Ur Barbiturates Screen NEGATIVE (NEGATIVE) Ur Phencyclidine Scrn POSITIVE (NEGATIVE) Ur Amphetamine Screen NEGATIVE (NEGATIVE) U Methamphetamines Scrn NEGATIVE (NEGATIVE) U Benzodiazepines Scrn NEGATIVE (NEGATIVE) U Cocaine Metab Screen NEGATIVE (NEGATIVE) U Marijuana (THC) Screen NEGATIVE (NEGATIVE) Ethyl Alcohol mg/dL SARS-CoV-2 RNA (NIKOLE) NEGATIVE (NEGATIVE) 08/14/20 08/14/20 08/14/20 Range/Units 00:00 05:25 05:25 WBC 4.16 (4.0-11.0) K/uL RBC 4.18 L (4.50-5.90) M/uL Hgb 11.0 L (13.0-17.0) g/dL Hct 33.7 L (38.0-50.0) % MCV 80.6 (80.0-98.0) fL MCH 26.3 L (27.0-32.0) pg MCHC 32.6 (31.0-37.0) g/dL RDW Std Deviation 44.9 (28.0-62.0) fl RDW Coeff of Turner 15 (11.0-15.0) % Plt Count 257 (150-400) K/uL MPV 8.80 (7.40-12.00) fL Neut % (Auto) 89.6 H (48.0-80.0) % Lymph % (Auto) 8.2 L (16.0-40.0) % Moca % (Auto) 2.2 (0.0-15.0) % Eos % (Auto) 0.0 (0.0-7.0) % Baso % (Auto) 0.0 (0.0-1.5) % Neut # (Auto) 3.7 (1.4-5.7) K/uL Lymph # (Auto) 0.3 L (0.6-2.4) K/uL Moca # (Auto) 0.1 (0.0-0.8) K/uL Eos # (Auto) 0.0 (0.0-0.7) K/uL Baso # (Auto) 0.0 (0.0-0.1) K/uL Nucleated RBC % 0.0 /100WBC Nucleated RBCs # 0 K/uL Lactate (0.20-2.00) mmol/L Sodium 135 L (136-148) mmol/L Potassium 5.0 (3.5-5.1) mmol/L Chloride 101 (98-107) mmol/L Carbon Dioxide 23.0 (21.0-32.0) mmol/L BUN 34 H (7.0-18.0) mg/dL Creatinine 1.3 (0.8-1.3) mg/dL Est Cr Clr Drug Dosing 53.06 Estimated GFR (MDRD) 53.7 ml/min Glucose 162 H (74-106) mg/dL POC Glucose 131 H (60-110) mg/dL Calcium 8.6 (8.5-10.1) mg/dL Phosphorus 4.3 (2.6-4.7) mg/dL Magnesium 1.7 L (1.8-2.4) mg/dL Total Bilirubin (0.2-1.0) mg/dL AST (15-37) IU/L ALT (14-63) IU/L Alkaline Phosphatase (46-116) U/L Troponin I (0.000-0.056) ng/mL Total Protein (6.4-8.2) g/dL Albumin (3.4-5.0) g/dL Globulin (2.6-4.0) g/dL Albumin/Globulin Ratio (0.9-1.6) Lipase (73-393) U/L Urine Color Urine Appearance Urine pH (5.0-8.0) Ur Specific [place] (1.001-1.035) Urine Protein (NEGATIVE) mg/dL Urine Glucose (UA) (NEGATIVE) mg/dL Urine Ketones (NEGATIVE) mg/dL Urine Occult Blood (NEGATIVE) Urine Nitrite (NEGATIVE) Urine Bilirubin (NEGATIVE) Urine Ictotest Urine Urobilinogen (<2.0) EU/dL Ur Leukocyte Esterase (NEGATIVE) Urine Opiates Screen (NEGATIVE) Ur Oxycodone Screen (NEGATIVE) Urine Methadone Screen (NEGATIVE) Ur Barbiturates Screen (NEGATIVE) Ur Phencyclidine Scrn (NEGATIVE) Ur Amphetamine Screen (NEGATIVE) U Methamphetamines Scrn (NEGATIVE) U Benzodiazepines Scrn (NEGATIVE) U Cocaine Metab Screen (NEGATIVE) U Marijuana (THC) Screen (NEGATIVE) Ethyl Alcohol mg/dL SARS-CoV-2 RNA (NIKOLE) (NEGATIVE) 08/14/20 Range/Units 06:32 WBC (4.0-11.0) K/uL RBC (4.50-5.90) M/uL Hgb (13.0-17.0) g/dL Hct (38.0-50.0) % MCV (80.0-98.0) fL MCH (27.0-32.0) pg MCHC (31.0-37.0) g/dL RDW Std Deviation (28.0-62.0) fl RDW Coeff of Turner (11.0-15.0) % Plt Count (150-400) K/uL MPV (7.40-12.00) fL Neut % (Auto) (48.0-80.0) % Lymph % (Auto) (16.0-40.0) % Moca % (Auto) (0.0-15.0) % Eos % (Auto) (0.0-7.0) % Baso % (Auto) (0.0-1.5) % Neut # (Auto) (1.4-5.7) K/uL Lymph # (Auto) (0.6-2.4) K/uL Moca # (Auto) (0.0-0.8) K/uL Eos # (Auto) (0.0-0.7) K/uL Baso # (Auto) (0.0-0.1) K/uL Nucleated RBC % /100WBC Nucleated RBCs # K/uL Lactate (0.20-2.00) mmol/L Sodium (136-148) mmol/L Potassium (3.5-5.1) mmol/L Chloride (98-107) mmol/L Carbon Dioxide (21.0-32.0) mmol/L BUN (7.0-18.0) mg/dL Creatinine (0.8-1.3) mg/dL Est Cr Clr Drug Dosing Estimated GFR (MDRD) ml/min Glucose (74-106) mg/dL POC Glucose 177 H (60-110) mg/dL Calcium (8.5-10.1) mg/dL Phosphorus (2.6-4.7) mg/dL Magnesium (1.8-2.4) mg/dL Total Bilirubin (0.2-1.0) mg/dL AST (15-37) IU/L ALT (14-63) IU/L Alkaline Phosphatase (46-116) U/L Troponin I (0.000-0.056) ng/mL Total Protein (6.4-8.2) g/dL Albumin (3.4-5.0) g/dL Globulin (2.6-4.0) g/dL Albumin/Globulin Ratio (0.9-1.6) Lipase (73-393) U/L Urine Color Urine Appearance Urine pH (5.0-8.0) Ur Specific [place] (1.001-1.035) Urine Protein (NEGATIVE) mg/dL Urine Glucose (UA) (NEGATIVE) mg/dL Urine Ketones (NEGATIVE) mg/dL Urine Occult Blood (NEGATIVE) Urine Nitrite (NEGATIVE) Urine Bilirubin (NEGATIVE) Urine Ictotest Urine Urobilinogen (<2.0) EU/dL Ur Leukocyte Esterase (NEGATIVE) Urine Opiates Screen (NEGATIVE) Ur Oxycodone Screen (NEGATIVE) Urine Methadone Screen (NEGATIVE) Ur Barbiturates Screen (NEGATIVE) Ur Phencyclidine Scrn (NEGATIVE) Ur Amphetamine Screen (NEGATIVE) U Methamphetamines Scrn (NEGATIVE) U Benzodiazepines Scrn (NEGATIVE) U Cocaine Metab Screen (NEGATIVE) U Marijuana (THC) Screen (NEGATIVE) Ethyl Alcohol mg/dL SARS-CoV-2 RNA (NIKOLE) (NEGATIVE) Med Orders - Current: Current Medications Acetaminophen (Tylenol) 650 mg PO Q4H PRN PRN Reason: Pain (Mild 1-3)/fever Albuterol/Ipratropium (Combivent Respimat) 0 gm INH Q4H PRN PRN Reason: Dyspnea Dexamethasone (Dexamethasone) 6 mg PO DAILY [facility] Last Admin: 08/14/20 09:36 Dose: 6 mg Documented by: Enoxaparin Sodium (Lovenox) 40 mg SUBCUT Q24H [facility] Last Admin: 08/13/20 21:23 Dose: 40 mg Documented by: Azithromycin 500 mg/ Sodium (Chloride) 250 mls @ 250 mls/hr IV ONETIME [facility] Last Infusion: 08/13/20 23:52 Dose: Infused Documented by: Lactated Ringer's (Ringers, Lactated) 1,000 mls @ 100 mls/hr IV ASDIRECTED [facility] Last Admin: 08/13/20 22:48 Dose: 100 mls/hr Documented by: Azithromycin 500 mg/ Sodium (Chloride) 250 mls @ 250 mls/hr IV DAILY [facility] Last Admin: 08/14/20 09:53 Dose: 250 mls/hr Documented by: Magnesium Sulfate (Magnesium Sulfate In Water Premix) 2 gm in 50 mls @ 50 mls/hr IV ONETIME ONE Stop: 08/14/20 11:44 Influenza Virus Vaccine (Pharmacy To Dose - Influenza Vaccine) 1 each IM ONETIME ONE Stop: 08/14/20 09:59 [facility]ulin Asp[facility] (Novolog) [facility]; Protocol Last Admin: 08/14/20 09:48 Dose: 1 unit Documented by: Discontinued Medications Dexamethasone (Dexamethasone) 6 mg IVPUSH ONETIME ONE Stop: 08/13/20 20:14 Last Admin: 08/13/20 21:18 Dose: 6 mg Documented by: Sodium Chloride (Normal Saline) 1,000 mls @ 999 mls/hr IV BOLUS ONE Stop: 08/13/20 19:57 Last Admin: 08/13/20 21:17 Dose: 999 mls/hr Documented by: Ceftriaxone Sodium/Dextrose 1 (gm/ Premix) 50 mls @ 100 mls/hr IV ONETIME ONE Stop: 08/13/20 20:59 Last Admin: 08/13/20 21:21 Dose: 100 mls/hr Documented by: Insulin Aspart (Novolog) 0 unit SUBCUT [facility]; Protocol - Exam Quality Assessment: No: Supplemental Oxygen General: Alert, Oriented Neck: Supple, Trachea Midline Lungs: Clear to Auscultation, Normal Respiratory Effort Cardiovascular: Regular Rate, Regular Rhythm Sepsis Event Note - Evaluation Sepsis Screening Result: No Definite Risk - Focused Exam Vital Signs: Vital Signs Temp Pulse Resp BP Pulse Ox 08/14/20 08:32 36.8 C 82 16 141/75 H 92 L 08/14/20 03:55 36.1 C 79 16 127/73 96 08/14/20 00:04 36.4 C 77 16 118/69 94 L - Problem List & Annotations (1) SEAN (acute kidney injury) SNOMED Code(s): 74016539, 20871618 Code(s): N17.9 - ACUTE KIDNEY FAILURE, UNSPECIFIED Status: Acute Current Visit: Yes (2) COPD (chronic obstructive pulmonary disease) SNOMED Code(s): 23197827 Code(s): J44.9 - CHRONIC OBSTRUCTIVE PULMONARY DISEASE, UNSPECIFIED Status: Acute Current Visit: Yes (3) Weakness SNOMED Code(s): 28384722 Code(s): R53.1 - WEAKNESS Status: Acute Current Visit: Yes (4) Alcohol abuse SNOMED Code(s): 39805948 Code(s): F10.10 - ALCOHOL ABUSE, UNCOMPLICATED Status: Chronic Priority: Medium Current Visit: No (5) Diabetes type 2, controlled SNOMED Code(s): 01957944, 328284288 Code(s): E11.9 - TYPE 2 DIABETES MELLITUS WITHOUT COMPLICATIONS Status: Chronic Priority: Medium Current Visit: No Qualifiers: Diabetes mellitus long term care pharmacist insulin use: without long term care pharmacist use Diabetes mellitus complication status: without complication Qualified Code(s): E11.9 - Type 2 diabetes mellitus without complications (6) S/P CABG x 3 SNOMED Code(s): 952773699, 176770497, 883463118 Code(s): Z95.1 - PRESENCE OF AORTOCORONARY BYPASS GRAFT Status: Chronic Priority: Medium Current Visit: No (7) COVID-19 SNOMED Code(s): 885055573 Code(s): U07.1 - COVID-19 Status: Acute Current Visit: Yes - Problem List Review Problem List Initiated/Reviewed/Updated: Yes - My Orders Last 24 Hours: My Active Orders 08/13/20 Dinner [employer] Diet [DIET] 08/13/20 21:04 Blood Glucose Check, Bedside [RC] WITHMEALSANDBED Oxygen Therapy [RC] PRN VTE/DVT Education [RC] PER UNIT ROUTINE Vital Signs [RC] Q4H Acetaminophen [TylenoL] 650 mg PO Q4H PRN 08/13/20 21:05 Pulse Oximetry [RC] PRN Sequential Compression Device [OM.PC] Per Unit Routine 08/13/20 21:06 Antiembolic Devices [RC] PER UNIT ROUTINE 08/13/20 21:10 RT Post Treatment Assessment [RC] Click to Edit RT Pre-Treatment Assessment [RC] Click to Edit Albuterol/Ipratropium [Combivent Respimat] See Dose Instructions INH Q4H PRN 08/13/20 21:15 Enoxaparin [Lovenox] 40 mg SUBCUT Q24H Lactated Ringers [Ringers, Lactated] 1,000 ml IV ASDIRECTED 08/13/20 23:15 Insulin Aspart [NovoLOG] See Protocol SUBCUT TIDAC 08/14/20 09:00 Azithromycin [Zithromax] 500 mg Sodium Chloride 0.9% [Normal Saline (AdvBag)] 250 ml IV DAILY dexAMETHasone 6 mg PO DAILY 08/14/20 09:58 Influenza Vaccine Charge [RC] .DISCHARGE Pharmacy to Dose - InFluenza V [Pharmacy to Dose - InFluenza Vaccine] 1 each IM ONETIME ONE - Plan Plan:: 75 y/o M admitted for Generalized weakness, ambulatory dysfunction and AMS Prior h/o COVID last week, tested negative today currently on Rom air, oxygen as needed PRN to keep pulse oxy >88% cont dexamethasone cont IV azithromycin Lovenox for DVT ppx Combivent as needed SEAN likely pre-renal, resolved continue IV fluids for resuscitation SSI for DM hypomagnesemia, replete magnesium monitor and repeat electrolyte as needed
[2020-08-14] MEDS ORDERED: Lactated Ringers 1,000 ML IV SCH (18:45)
[2020-08-14] MEDS: Lactated Ringers 1,000 ML IV SCH (19:40)
[2020-08-14] MEDS: Enoxaparin 40 MG/0.4 ML Syringe SUBCUT SCH (21:36)
[2020-08-15] MEDS: Lactated Ringers 1,000 ML IV SCH (03:40)
[2020-08-15 06:52] LABS: BLOOD UREA NITROGEN,BUN 19 mg/dL (7.0-18.0); CARBON DIOXIDE,CO2 25.4 mmol/L (21.0-32.0); CHLORIDE,CL 102 mmol/L (98-107); GLUCOSE RANDOM 117 mg/dL (74-106); POTASSIUM,K 4.5 mmol/L (3.5-5.1); SODIUM,NA 135 mmol/L (136-148)
[2020-08-15] MEDS: Insulin Aspart 100 Units/ML 3 ML Pen SUBCUT SCH ×2 (06:59→13:45)
[2020-08-15] MEDS: Azithromycin 500 MG in Sodium Chloride 0.9% 250 ML IV SCH (08:45)
[2020-08-15] MEDS: Dexamethasone 4 MG Tab PO SCH (09:32)
[2020-08-15] MEDS ORDERED: Magnesium Sulfate/Water 4 GM in Premix Bag 1 BAG IV ONE (10:10)
[2020-08-15 11:30] VITALS: BP 133/76; PULSE 71
[2020-08-15] MEDS ORDERED: Phosphorus #1 250 MG Tab PO SCH (12:00)
--- NOTE | 2020-08-15 12:45 | PCM.DCSUM1 ---
Discharge Summary - Hospital Course Free Text/Narrative:: Patient is a 75-year-old male with PMH of CAD, Hypertension, AR, COPD, Cholelithiasis, GERD, Back Pain, Chronic, Anxiety, Depression who presents to the ED today with his daughter for concern of confusion, not eating or drinking, and inability t perform ADLS for last few days. Patient was diagnosed with COVID 1 week ago and daughter states initially he was doing well, has mild symptoms such as coughs and fevers. 2 days back patient was suddenly very weak, he was unable to walk, stand, get himself dressed, eat, or drink anything. Daughter states that prior to the COVID infection, he was fully ambulatory and completed ADLs without any assistance. Daughter states that he also is confused and is not replying appropriately to questions. CT scan of head didn't show any acute finding, cxr showed multifocal pneumonia possibly viral in nature, his lab s reveled SEAN, In the ER patient received IV fluids, and IV antibiotics, Carpenter was placed in ER, His BP was initially soft which later improved after IV fluids. Patient is being admitted for further care. Patient was started on IV fluids, his magnesium was repleted, started on oral dexamethasone, and azithromycin. Next day, patients SEAN resolved, patient was more awake and alert and back to his baseline. He was medically stable for dc and recommenced to fu with pcp upon dc. Diagnosis: Stroke: No - Discharge Data Discharge Date: 08/15/20 Discharge Disposition: Home, Self-Care 01 Condition: Fair - Referral to Home Health Primary Care Physician: PCP Not In Area - Discharge Diagnosis/Problem(s) (1) SEAN (acute kidney injury) SNOMED Code(s): 89972803, 15883069 ICD Code: N17.9 - ACUTE KIDNEY FAILURE, UNSPECIFIED Status: Acute (2) COPD (chronic obstructive pulmonary disease) SNOMED Code(s): 08280860 ICD Code: J44.9 - CHRONIC OBSTRUCTIVE PULMONARY DISEASE, UNSPECIFIED Status: Acute (3) Weakness SNOMED Code(s): 00297446 ICD Code: R53.1 - WEAKNESS Status: Acute (4) Alcohol abuse SNOMED Code(s): 32842047 ICD Code: F10.10 - ALCOHOL ABUSE, UNCOMPLICATED Status: Chronic Priority: Medium (5) Diabetes type 2, controlled SNOMED Code(s): 49398672, 565980240 ICD Code: E11.9 - TYPE 2 DIABETES MELLITUS WITHOUT COMPLICATIONS Status: Chronic Priority: Medium Qualifiers: Diabetes mellitus nursing home insulin use: without nursing home use Diabetes mellitus complication status: without complication Qualified Code(s): E11.9 - Type 2 diabetes mellitus without complications (6) S/P CABG x 3 SNOMED Code(s): 088119782, 179021796, 618954338 ICD Code: Z95.1 - PRESENCE OF AORTOCORONARY BYPASS GRAFT Status: Chronic Priority: Medium (7) COVID-19 SNOMED Code(s): 854200815 ICD Code: U07.1 - COVID-19 Status: Acute - Patient Instructions Diet: Diabetic Diet Activity: As Tolerated Driving: Do Not Drive Showering/Bathing: May Shower Notify Provider of: Fever, Increased Pain, Swelling and Redness, Drainage, Nausea and/or Vomiting - Discharge Plan *PRESCRIPTION DRUG MONITORING PROGRAM REVIEWED*: No *COPY OF PRESCRIPTION DRUG MONITORING REPORT IN PATIENT LEIGH: No Prescriptions/Med Rec: Azithromycin 250 mg PO DAILY #4 tablet Home Medications: Home Meds Carboxymethylcellulose Sodium [Refresh Plus 0.5%] 1 each OP ASDIRECTED 05/11/14 [History] Aspirin 325 mg PO DAILY 11/18/19 [History] Latanoprost/Pf [Latanoprost 0.005% Eye Drop] 1 drop EYEBOTH BEDTIME 08/14/20 [History] Lidocaine 5% [Lidoderm 5%] 1 patch TD Q12H 08/14/20 [History] Naproxen 250 mg PO BID PRN 08/14/20 [History] PARoxetine [Paxil] 20 mg PO DAILY 08/14/20 [History] QUEtiapine [SEROquel] 100 mg PO BEDTIME 08/14/20 [History] atorvaSTATin [Lipitor] 40 mg PO DAILY 08/14/20 [History] buPROPion HCL [Bupropion HCl Sr] 100 mg PO BID 08/14/20 [History] dilTIAZem HCL [Diltiazem 24Hr ER (Cd)] 240 mg PO DAILY 08/14/20 [History] glipiZIDE [Glucotrol] 2.5 mg PO DAILY 08/14/20 [History] hydrOXYzine pamoate [Hydroxyzine Pamoate] 25 mg PO QID PRN 08/14/20 [History] lisinopriL [Lisinopril] 40 mg PO DAILY 08/14/20 [History] metFORMIN HCl [Glucophage] 1,000 mg PO BIDMEALS 08/14/20 [History] Azithromycin 250 mg PO DAILY #4 tablet 08/15/20 [Rx] Oxygen Therapy Mode: Room Air Patient Handouts: COVID-19, Azithromycin tablets - Discharge Summary/Plan Comment DC Time >30 min.: No - Patient Data Vitals - Most Recent: Last Vital Signs Temp 36.7 C 08/15/20 11:28 Pulse 71 08/15/20 11:28 Resp 16 08/15/20 11:28 BP 133/76 08/15/20 11:28 Pulse Ox 97 08/15/20 11:28 Weight - Most Recent: 79.832 kg I&O - Last 24 hours: Intake & Output 08/14/20 08/15/20 08/15/20 22:59 06:59 14:59 Intake Total 1286 270 Output Total 825 850 Balance 461 -580 Lab Results - Last 24 hrs: Laboratory Results - last 24 hr 08/14/20 08/14/20 08/14/20 Range/Units 13:32 16:26 21:42 WBC (4.0-11.0) K/uL RBC (4.50-5.90) M/uL Hgb (13.0-17.0) g/dL Hct (38.0-50.0) % MCV (80.0-98.0) fL MCH (27.0-32.0) pg MCHC (31.0-37.0) g/dL RDW Std Deviation (28.0-62.0) fl RDW Coeff of Turner (11.0-15.0) % Plt Count (150-400) K/uL MPV (7.40-12.00) fL Neut % (Auto) (48.0-80.0) % Lymph % (Auto) (16.0-40.0) % [place] % (Auto) (0.0-15.0) % Eos % (Auto) (0.0-7.0) % Baso % (Auto) (0.0-1.5) % Neut # (Auto) (1.4-5.7) K/uL Lymph # (Auto) (0.6-2.4) K/uL [place] # (Auto) (0.0-0.8) K/uL Eos # (Auto) (0.0-0.7) K/uL Baso # (Auto) (0.0-0.1) K/uL Nucleated RBC % /100WBC Nucleated RBCs # K/uL Sodium (136-148) mmol/L Potassium (3.5-5.1) mmol/L Chloride (98-107) mmol/L Carbon Dioxide (21.0-32.0) mmol/L BUN (7.0-18.0) mg/dL Creatinine (0.8-1.3) mg/dL Est Cr Clr Drug Dosing mL/min Estimated GFR (MDRD) ml/min Glucose (74-106) mg/dL POC Glucose 166 H 231 H 183 H (60-110) mg/dL Calcium (8.5-10.1) mg/dL Phosphorus (2.6-4.7) mg/dL Magnesium (1.8-2.4) mg/dL 08/15/20 08/15/20 08/15/20 Range/Units 06:15 06:15 06:50 WBC 7.60 (4.0-11.0) K/uL RBC 4.08 L (4.50-5.90) M/uL Hgb 10.9 L (13.0-17.0) g/dL Hct 32.4 L (38.0-50.0) % MCV 79.4 L (80.0-98.0) fL MCH 26.7 L (27.0-32.0) pg MCHC 33.6 (31.0-37.0) g/dL RDW Std Deviation 43.5 (28.0-62.0) fl RDW Coeff of Turner 15 (11.0-15.0) % Plt Count 273 (150-400) K/uL MPV 8.80 (7.40-12.00) fL Neut % (Auto) 77.8 (48.0-80.0) % Lymph % (Auto) 13.0 L (16.0-40.0) % [place] % (Auto) 9.1 (0.0-15.0) % Eos % (Auto) 0.1 (0.0-7.0) % Baso % (Auto) 0.0 (0.0-1.5) % Neut # (Auto) 5.9 H (1.4-5.7) K/uL Lymph # (Auto) 1.0 (0.6-2.4) K/uL [place] # (Auto) 0.7 (0.0-0.8) K/uL Eos # (Auto) 0.0 (0.0-0.7) K/uL Baso # (Auto) 0.0 (0.0-0.1) K/uL Nucleated RBC % 0.0 /100WBC Nucleated RBCs # 0 K/uL Sodium 135 L (136-148) mmol/L Potassium 4.5 (3.5-5.1) mmol/L Chloride 102 (98-107) mmol/L Carbon Dioxide 25.4 (21.0-32.0) mmol/L BUN 19 H (7.0-18.0) mg/dL Creatinine 0.6 L (0.8-1.3) mg/dL Est Cr Clr Drug Dosing 114.96 mL/min Estimated GFR (MDRD) > 60.0 ml/min Glucose 117 H (74-106) mg/dL POC Glucose 100 (60-110) mg/dL Calcium 8.3 L (8.5-10.1) mg/dL Phosphorus 2.0 L (2.6-4.7) mg/dL Magnesium 1.4 L (1.8-2.4) mg/dL DEEPAK Results - Last 24 hrs: Microbiology 08/13/20 19:52 Aerobic Blood Culture - Preliminary Blood - Venous - Lab Draw NO GROWTH AFTER 1 DAY Anaerobic Blood Culture - Preliminary NO GROWTH AFTER 1 DAY 08/13/20 19:08 Aerobic Blood Culture - Preliminary Blood - Venous NO GROWTH AFTER 1 DAY Anaerobic Blood Culture - Preliminary NO GROWTH AFTER 1 DAY Med Orders - Current: Current Medications Acetaminophen (Tylenol) 650 mg PO Q4H PRN PRN Reason: Pain (Mild 1-3)/fever Albuterol/Ipratropium (Combivent Respimat) 0 gm INH Q4H PRN PRN Reason: Dyspnea Dexamethasone (Dexamethasone) 6 mg PO DAILY EUGENE Last Admin: 08/15/20 09:32 Dose: 6 mg Documented by: Enoxaparin Sodium (Lovenox) 40 mg SUBCUT Q24H [facility] Last Admin: 08/14/20 21:36 Dose: 40 mg Documented by: Azithromycin 500 mg/ Sodium (Chloride) 250 mls @ 250 mls/hr IV DAILY [facility] Last Admin: 08/15/20 08:45 Dose: 250 mls/hr Documented by: Lactated Ringer's (Ringers, Lactated) 1,000 mls @ 125 mls/hr IV ASDIRECTED [facility] Last Admin: 08/15/20 03:40 Dose: 125 mls/hr Documented by: Magnesium Sulfate 4 gm/ Premix 100 mls @ 33.333 mls/hr IV ONETIME ONE Stop: 08/15/20 13:09 Last Admin: 08/15/20 11:30 Dose: 33.333 mls/hr Documented by: Influenza Virus Vaccine (Fluzone High-Dose Quad ) 240 mcg IM .ONCE ONE Stop: 08/20/20 14:01 Insulin Aspart (Novolog) 0 unit SUBCUT TIDAC [facility]; Protocol Last Admin: 08/15/20 06:59 Dose: Not Given Documented by: Sodium Phosphate (Neutra-Phos) 250 mg PO QID [facility] Last Admin: 08/15/20 11:30 Dose: 250 mg Documented by: Discontinued Medications Dexamethasone (Dexamethasone) 6 mg IVPUSH ONETIME ONE Stop: 08/13/20 20:14 Last Admin: 08/13/20 21:18 Dose: 6 mg Documented by: Sodium Chloride (Normal Saline) 1,000 mls @ 999 mls/hr IV BOLUS ONE Stop: 08/13/20 19:57 Last Admin: 08/13/20 21:17 Dose: 999 mls/hr Documented by: Ceftriaxone Sodium/Dextrose 1 (gm/ Premix) 50 mls @ 100 mls/hr IV ONETIME ONE Stop: 08/13/20 20:59 Last Admin: 08/13/20 21:21 Dose: 100 mls/hr Documented by: Azithromycin 500 mg/ Sodium (Chloride) 250 mls @ 250 mls/hr IV ONETIME [facility] Last Infusion: 08/13/20 23:52 Dose: Infused Documented by: Lactated Ringer's (Ringers, Lactated) 1,000 mls @ 100 mls/hr IV ASDIRECTED [facility] Last Admin: 08/13/20 22:48 Dose: 100 mls/hr Documented by: Magnesium Sulfate (Magnesium Sulfate In Water Premix) 2 gm in 50 mls @ 50 mls/hr IV ONETIME ONE Stop: 08/14/20 11:44 Last Admin: 08/14/20 11:30 Dose: 50 mls/hr Documented by: Lactated Ringer's (Ringers, Lactated) 1,000 mls @ 125 mls/hr IV ASDIRECTED [facility] Influenza Virus Vaccine (Pharmacy To Dose - Influenza Vaccine) 1 each IM ONETIME ONE Stop: 08/14/20 09:59 Insulin Aspart (Novolog) [facility]; Protocol
[2020-08-20] MEDS ORDERED: FLU Vacc QV2020-21(65YR UP)/PF 240 MCG/0.7 ML Syringe IM ONE (14:00)
== END 2020-08-15 17:30 | disposition home or self-care (01) | DRG 682 ==
LOC: MW.ED 17:46 → MW.MS 20:40
PROVIDERS: ADMIT Student in an Organized Health Care Education/Training Program; ATTEND Student in an Organized Health Care Education/Training Program
DX: U07.1 COVID-19 (principal); R41.0 Disorientation, unspecified; R53.1 Weakness; Z91.81 History of falling; N17.9 Acute kidney failure, unspecified; J18.9 Pneumonia, unspecified organism; J44.9 Chronic obstructive pulmonary disease, unspecified; F10.10 Alcohol abuse, uncomplicated; I25.10 Atherosclerotic heart disease of native coronary artery without angina pectoris; E83.42 Hypomagnesemia; I10 Essential (primary) hypertension; K21.9 Gastro-esophageal reflux disease without esophagitis; Z20.828 Contact with and (suspected) exposure to other viral communicable diseases; G89.29 Other chronic pain; M54.9 Dorsalgia, unspecified; F41.9 Anxiety disorder, unspecified; F32.9 Major depressive disorder, single episode, unspecified; E11.9 Type 2 diabetes mellitus without complications; Z96.649 Presence of unspecified artificial hip joint; Z91.048 Other nonmedicinal substance allergy status; F17.200 Nicotine dependence, unspecified, uncomplicated; Z95.1 Presence of aortocoronary bypass graft; Z88.5 Allergy status to narcotic agent; Z91.09 Other allergy status, other than to drugs and biological substances; I25.2 Old myocardial infarction; Z79.84 Long term (current) use of oral hypoglycemic drugs; Z79.82 Long term (current) use of aspirin; Z79.899 Other long term (current) drug therapy; Z98.49 Cataract extraction status, unspecified eye; Z90.49 Acquired absence of other specified parts of digestive tract; Z86.19 Personal history of other infectious and parasitic diseases
CPT/HCPCS: 36415; 51702; 70450; 71045; 80053; 80305; 80307; 81003; 83605; 83690; 84484; 85025; 87040 ×2; 93005; 96360; 99285; U0002; 80048; 82962; 83735; 84100; 99222; 99232; 99238; 99284; A9270-GY; J0456; J0696; J1100; J1650; J1815-GY; J3475; J7030; J7050; J7120; J8540